=== PATIENT | male | born 1985 | race Caucasian/White ===

== ENCOUNTER 2016-09-28 10:57 | Inpatient (IN) | payer OTHER ==
[2016-09-28 11:40] VITALS: BMI 20.7
--- NOTE | 2016-09-28 12:46 | HP ---
CIWA Score - CIWA Score Nausea/Vomitin (NAUSEA/DIARRHEA) Muscle Tremors: 5 Anxiety: 5 Agitation: 3 Paroxysmal Sweats: 1-Minimal Palms Moist Orientation: 0-Oriented Tacttile Disturbances: 0-None Auditory Disturbances: 0-None Visual Disturbances: 0-None Headache: 1-Very Mild CIWA-Ar Total Score: 20 Admission ROS S - HPI Chief Complaint: DETOX TX FOR ALCOHOL DEPENDENCE Allergies/Adverse Reactions: Allergies Allergy/AdvReac Type Severity Reaction Status Date / Time No Known Allergies Allergy Verified 09/28/16 12:33 History of Present Illness: 31 Y/O H/MALE WITH A HX OF ALCOHOL DEPENDENCE SEEKING DETOX TX. PT WAS AT [facility] TWO DAYS AGO FOR TACHYCARDIA DUE TO WITHDRAWAL SX. Exam Limitations: No Limitations - Ebola screening Have you traveled outside of the country in the last 21 days: No Have you had contact with anyone from an Ebola affected area: No Have you been sick,other than usual withdrawal symptoms: No Do you have a fever: No - Review of Systems Constitutional: Chills, Loss of Appetite, Night Sweats, Changes in sleep EENT: reports: Blurred Vision (WEARS CONTACTS.), Nose Congestion Respiratory: reports: Cough, Shortness of Breath Cardiac: reports: Other (TACHYCARDIA DUE TO WITHDRAWAL SX) GI: reports: Diarrhea, Nausea, Poor Appetite, Abdominal cramping : reports: No Symptoms Reported Musculoskeletal: reports: Muscle Pain (/CRAMPS) Integumentary: reports: Bruising (ON RIGHT KNEE/BUMP ON RIGHT EYEBOW DUE TO FALL 3 WEEKS AGO. WENT TO [facility] FOR CARE...CATSCAN NEGATIVE PER PATIENT.) Neuro: reports: Headache ("VERY RARELY".), Tremors, Unsteady Gait (HX FALLS .), Dizziness Endocrine: reports: No Symptoms Reported Hematology: reports: No Symptoms Reported Psychiatric: reports: Orientated x3, Anxious (DUE TO WITHDRAWAL SX) Other Systems: Reviewed and Negative Patient History - Patient Medical History Hx Anemia: No Hx Asthma: No Hx Chronic Obstructive Pulmonary Disease (COPD): No Hx Cancer: No Hx Cardiac Disorders: No Hx Congestive Heart Failure: No Hx Hypertension: No Hx Hypercholesterolemia: No Hx Pacemaker: No HX Cerebrovascular Accident: No Hx Seizures: No Hx Dementia: No Hx Diabetes: No Hx Gastrointestinal Disorders: No Hx Liver Disease: No Hx Genitourinary Disorders: No Hx Sexually Transmitted Disorders: No Hx Renal Disease (ESRD): No Hx Thyroid Disease: No Hx Human Immunodeficiency Virus (HIV): No (NEGATIVE HX) Hx Hepatitis C: No Hx Depression: Yes Hx Suicide Attempt: No (DENIES) Hx Bipolar Disorder: No Hx Schizophrenia: No - Patient Surgical History Past Surgical History: Yes Hx Neurologic Surgery: No Hx Cataract Extraction: No Hx Cardiac Surgery: No Hx Lung Surgery: No Hx Breast Surgery: No Hx Breast Biopsy: No Hx Abdominal Surgery: Yes (gastric bypass in 2011 TUMMY TUCK IN 2012) Hx Appendectomy: No Hx Cholecystectomy: No Hx Genitourinary Surgery: No Hx Section: No Hx Orthopedic Surgery: No Anesthesia Reaction: No - PPD History Previous Implant?: Yes Documented Results: Negative w/o proof Implanted On Prior [facility] Admission?: No Date: 02/09/15 PPD to be Administered?: Yes - Reproductive History Patient is a Female of Child Bearing Age (11 -55 yrs old): No (MALE) - Smoking Cessation Smoking history: Current every day smoker Have you smoked in the past 12 months: Yes Aproximately how many cigarettes per day: 6 Hx Chewing Tobacco Use: No Initiated information on smoking cessation: Yes 'Breaking Loose' booklet given: 09/21/16 - Substance & Tx. History Hx Alcohol Use: Yes (VODKA) Hx Substance Use: No (DENIES) Substance Use Type: Alcohol Hx Substance Use Treatment: Yes ([facility] DETOX) - Substances Abused Alcohol Route: Oral Frequency: Daily Amount used: 2 PINTS VODKA Age of first use: 29 Date of Last Use: 09/26/16 Family Disease History - Family Disease History Family History: Denies Admission Physical Exam S - Vital Signs Vital Signs: Vital Signs - 24 hr 09/28/16 11:37 Temperature 98.4 F Pulse Rate 90 Respiratory 20 Rate Blood Pressure 134/96 - Physical General Appearance: Yes: Moderate Distress, Thin, Tremorous, Anxious HEENTM: Yes: EOMI, Normocephalic, TONY, Pharynx Normal Respiratory: Yes: Chest Non-Tender, Lungs Clear, Normal Breath Sounds, No Respiratory Distress Breast: Yes: Breast Exam Deferred Cardiology: Yes: Regular Rhythm, Regular Rate, S1, S2 Abdominal: Yes: Normal Bowel Sounds, Non Tender, Flat, Soft Genitourinary: Yes: Other (N/C) Back: Yes: Within Normal Limits Musculoskeletal: Yes: full range of Motion, Gait Steady Extremities: Yes: Normal Range of Motion, Non-Tender, Tremors Neurological: Yes: commuter train operator II-XII NML intact, Fully Oriented, Alert, Motor Strength 5/5 Integumentary: Yes: Normal Color, Dry, Warm Lymphatic: Yes: Within Normal Limits - Diagnostic (1) H/O gastric bypass Current Visit: Yes Status: Chronic (2) Nicotine dependence Current Visit: Yes Status: Chronic Qualifiers: Nicotine product type: cigarettes Substance use status: uncomplicated Qualified Code(s): F17.210 - Nicotine dependence, cigarettes, uncomplicated (3) Alcohol dependence with uncomplicated withdrawal Current Visit: Yes Status: Acute Cleared for Admission [facility] - Detox or Rehab [facility] Level of Care: Medically Managed Detox Regimen/Protocol: Librium [facility] Breath Alcohol Content Breath Alcohol Content: 0 Urine Drug Screen - Results Drug Screen Negative: No Urine Drug Screen Results: BZO-Benzodiazepines
[2016-09-28] MEDS ORDERED: MAG HYDROX/AL HYDROX/SIMETH 30 ML UNIT-DOSE CUP PO PRN (13:01)
[2016-09-28] MEDS ORDERED: MAGNESIUM HYDROX 2400MG/30ML ORAL SUSPENSION 30 ML CUP PO PRN (13:01)
[2016-09-28] MEDS ORDERED: MENTHOL/PHENOL 1 EACH UD MM PRN (13:01)
[2016-09-28] MEDS ORDERED: P-EPHED 60MG/TRIPROLIDI 2.5MG TABLET PO PRN (13:01)
[2016-09-28] MEDS ORDERED: guaiFENesin/D-METHORPHAN HB 10 ML UNIT-DOSE CUPS PO PRN (13:01)
[2016-09-28] MEDS ORDERED: LOPERAMIDE HCL 2 MG CAPSULE PO PRN (13:01)
[2016-09-28] MEDS ORDERED: IBUPROFEN 400 MG TABLET (FP) PO PRN (13:01)
[2016-09-28] MEDS ORDERED: MAGNESIUM CITRATE 300 ML BOTTLE PO PRN (13:01)
[2016-09-28] MEDS ORDERED: NICOTINE POLACRILEX 2 MG GUM BUC PRN (13:01)
[2016-09-28] MEDS ORDERED: ACETAMINOPHEN 325 MG TABLET (FP) PO PRN (13:01)
[2016-09-28] MEDS ORDERED: chlordiazePOXIDE HCL 25 MG CAPSULE PO ONE (14:15)
[2016-09-28] MEDS: NICOTINE 14 MG/24 HOURS TOPICAL PATCH TD SCH (14:43)
--- NOTE | 2016-09-28 16:14 | CONSULT ---
[facility] Psychiatric Consult - Data Date of interview: 09/28/16 Admission source: [facility] Identifying data: Readmission to [facility] for this 31 y/o male seeking detox treatment on for alcohol dependence.Patient is single without children,domiciled,currently unemployed and supported on food stamps. Substance Abuse History: - Smoking Cessation. Smoking history: Current every day smoker. Have you smoked in the past 12 months: Yes. Aproximately how many cigarettes per day: 6. Hx Chewing Tobacco Use: No. Initiated information on smoking cessation: Yes. 'Breaking Loose' booklet given: 09/21/16. - Substance & Tx. History. Hx Alcohol Use: Yes (VODKA). Hx Substance Use: No (DENIES). Substance Use Type: Alcohol. Hx Substance Use Treatment: Yes ([facility] DETOX). - Substances Abused. Alcohol. Route: Oral. Frequency: Daily. Amount used: 2 PINTS VODKA. Age of first use: 29. Date of Last Use: 09/26/16. Confirmed by patient. Medical History: Remarkable for a history of tummy tuck (2012),gastric bypass ( 2011). Psychiatric History: No reported history of psychiatric hospitalizations.No affiliation with OPD care providers.Mr López indicates that he takes trazodone 150 mg at bedtime (script from a psychiatrist during his most recent admission to a Rehabilitation inpatient unit).He denies history of suicide attempt.Last took this dose of trazodone on 09/27/16 as per self-report.No reported history of suicide attempts. Physical/Sexual Abuse/Trauma History: Patient denies. Additional Comment: Urine Drug Screen Results: BZO-Benzodiazepines.Noted. Mental Status Exam - Mental Status Exam Alert and Oriented to: Time, Place, Person Cognitive Function: Good Patient Appearance: Well Groomed (tattoos on both forearms) Mood: Nervous, Anxious, Hopeful Affect: Mood Congruent Patient Behavior: Fatigued, Talkative, Appropriate, Cooperative Speech Pattern: Clear, Appropriate Voice Loudness: Normal Thought Process: Goal Oriented Thought Disorder: Not Present Hallucinations: Denies Suicidal Ideation: Denies Homicidal Ideation: Denies Insight/Judgement: Poor Sleep: Poorly, Difficulty falling asleep Appetite: Good Muscle strength/Tone: Normal Gait/Station: Normal Psychiatric Findings - Problem List ([place] 1, 2,3) (1) Alcohol dependence with uncomplicated withdrawal Status: Acute (2) H/O gastric bypass Status: Acute (3) Nicotine dependence Status: Acute Qualifiers: Nicotine product type: cigarettes Substance use status: uncomplicated Qualified Code(s): F17.210 - Nicotine dependence, cigarettes, uncomplicated (4) Substance-induced sleep disorder Status: Acute - Initial Treatment Plan Initial Treatment Plan: Psychoeducation.Detoxification.Trazodone 100 mg po hs.Patient made aware of the risk of priapism (painful/prolonged erection) .Information reportedly aknowledged by patient.He agrees to follow this careplan.Observation.
[2016-09-28 16:35] LABS: URINE APPEARANCE CLEAR; URINE BLOOD NEGATIVE (NEGATIVE); URINE COLOR AMBER; URINE GLUCOSE (UA) NEGATIVE (NEGATIVE); URINE KETONE 1+ (NEGATIVE); URINE NITRITE NEGATIVE (NEGATIVE); URINE UROBILINOGEN 4.0 E.U/dl E.U./dl (0.2-1.0)
[2016-09-28 16:37] LABS: URINE LEUK ESTERASE TRACE (NEGATIVE); URINE PROTEIN 2+ (NEGATIVE)
[2016-09-28 16:46] LABS: URINE MUCUS RARE; URINE RBC 1 /hpf (0-3); URINE WBC <1 /hpf (3-5)
[2016-09-28] MEDS: chlordiazePOXIDE HCL 25 MG CAPSULE PO SCH ×2 (17:16→22:11)
[2016-09-28] MEDS: chlordiazePOXIDE HCL 25 MG CAPSULE PO PRN (20:05)
[2016-09-28] MEDS: traZODone HCL 100 MG TABLET (FP) PO SCH (22:11)
[2016-09-28] MEDS: THIAMINE HCL 100 MG TABLET (FP) PO SCH (22:11)
[2016-09-28] MEDS: hydrOXYzine PAMOATE 25 MG CAPSULE (FP) PO PRN (22:13)
[2016-09-29] MEDS: chlordiazePOXIDE HCL 25 MG CAPSULE PO SCH ×4 (06:21→22:23)
[2016-09-29 10:11] LABS: MCH 32.5 pg (25.7-33.7); MCHC 33.9 g/dl (32.0-35.9); MEAN PLT VOLUME 8.2 fl (7.5-11.1); PLATELET COUNT 63 K/MM3 (134-434); RDW 15.9 % (11.9-15.9); WHITE BLOOD COUNT 6.2 K/mm3 (4.0-10.0)
--- NOTE | 2016-09-29 10:23 | PN ---
S CIWA - CIWA Score Nausea/Vomitin Muscle Tremors: 3 Anxiety: 3 Agitation: 2 Paroxysmal Sweats: 1-Minimal Palms Moist Orientation: 0-Oriented Tacttile Disturbances: 1-Very Mild Itch/Numbness Auditory Disturbances: 1-Very Mild Visual Disturbances: 1-Very Mild Sensitivity Headache: 2-Mild CIWA-Ar Total Score: 17 [facility] Progress Note (SOAP) Subjective: ALERT,IRRITABLE ANXIOUS,INTERRUPTED SLEEP,TREMOR Objective: 09/29/16 10:20 Vital Signs Temperature 96.4 F L 09/29/16 09:38 Pulse Rate 91 H 09/29/16 09:38 Respiratory Rate 20 09/29/16 09:38 Blood Pressure 120/83 09/29/16 09:38 O2 Sat by Pulse Oximetry (%) EKG NSR Laboratory Last Values Sodium 139 mmol/L (136-145) 09/29/16 06:00 Potassium 3.4 mmol/L (3.5-5.1) L 09/29/16 06:00 Chloride 100 mmol/L (98-107) 09/29/16 06:00 Urine Color [place] 09/28/16 15:00 Urine Appearance Clear 09/28/16 15:00 Urine pH 8.0 (5.0-8.0) D 09/28/16 15:00 Ur Specific [place] 1.026 (1.001-1.035) 09/28/16 15:00 Urine Protein 2+ (NEGATIVE) H 09/28/16 15:00 Urine Glucose (UA) Negative (NEGATIVE) 09/28/16 15:00 Urine Ketones 1+ (NEGATIVE) H 09/28/16 15:00 Urine Blood Negative (NEGATIVE) 09/28/16 15:00 Urine Nitrite Negative (NEGATIVE) 09/28/16 15:00 Urine Bilirubin 2.0 (NEGATIVE) 09/28/16 15:00 Urine Urobilinogen 4.0 e.u/dl E.U./dl (0.2-1.0) 09/28/16 15:00 Ur Leukocyte Esterase Trace (NEGATIVE) H 09/28/16 15:00 Urine RBC 1 /hpf (0-3) 09/28/16 15:00 Urine WBC <1 /hpf (3-5) 09/28/16 15:00 Urine Mucus Rare 09/28/16 15:00 LABS PENDING Assessment: 09/29/16 10:22 WITHDRAWAL SYMPTOM Plan: CONTINUE DETOX
[2016-09-29] MEDS: NICOTINE 14 MG/24 HOURS TOPICAL PATCH TD SCH (10:24)
[2016-09-29] MEDS: PRENATAL VITAMINS W/ FOLIC ACID TABLET (FP) PO SCH (10:24)
[2016-09-29 10:41] LABS: ALBUMIN 4.3 g/dl (3.4-5.0); ALK PHOS 99 U/L (45-117); ANION GAP 11 (8-16); BILIRUBIN,TOTAL 1.3 mg/dL (0.2-1.0); CALCIUM 8.7 mg/dL (8.5-10.1); CO2 28 mmol/L (21-32); CREATININE 0.8 mg/dL (0.7-1.3); GLUCOSE,RANDOM 124 mg/dL (74-106); SGOT/AST 100 U/L (15-37); SGPT/ALT 51 U/L (12-78); TOT PROT 6.9 g/dl (6.4-8.2)
[2016-09-29 14:18] LABS: URINE APPEARANCE CLEAR; URINE BILIRUBIN 1+ (NEGATIVE); URINE BLOOD NEGATIVE (NEGATIVE); URINE COLOR YELLOW; URINE GLUCOSE (UA) NEGATIVE (NEGATIVE); URINE KETONE NEGATIVE (NEGATIVE); URINE NITRITE NEGATIVE (NEGATIVE); URINE PROTEIN NEGATIVE (NEGATIVE); URINE UROBILINOGEN >=8.0 E.U./dl E.U./dl (0.2-1.0)
[2016-09-29 14:25] LABS: URINE LEUK ESTERASE TRACE (NEGATIVE)
[2016-09-29 14:41] LABS: URINE MUCUS RARE; URINE RBC <1 /hpf (0-3); URINE WBC 2 /hpf (3-5)
--- NOTE | 2016-09-29 17:56 | PN ---
[facility] Progress Note Note: K+ 3.4 potassium supplement bid repeat lab 10/01/16
[2016-09-29] MEDS ORDERED: POTASSIUM CHLORIDE 40 MEQ/30 ML UNIT DOSE CUP PO SCH (22:00)
[2016-09-29] MEDS: THIAMINE HCL 100 MG TABLET (FP) PO SCH (22:23)
[2016-09-29] MEDS: traZODone HCL 100 MG TABLET (FP) PO SCH (22:23)
[2016-09-29] MEDS: POTASSIUM CHLORIDE TABS 20 MEQ TABLET.ER (FP) PO SCH (22:23)
[2016-09-29] MEDS: hydrOXYzine PAMOATE 25 MG CAPSULE (FP) PO PRN (22:26)
[2016-09-30] MEDS: chlordiazePOXIDE HCL 25 MG CAPSULE PO SCH ×2 (05:50→10:20)
--- NOTE | 2016-09-30 09:36 | PN ---
S CIWA - CIWA Score Nausea/Vomitin Muscle Tremors: 3 Anxiety: 3 Agitation: 2 Paroxysmal Sweats: 1-Minimal Palms Moist Orientation: 0-Oriented Tacttile Disturbances: 1-Very Mild Itch/Numbness Auditory Disturbances: 1-Very Mild Visual Disturbances: 1-Very Mild Sensitivity Headache: 2-Mild CIWA-Ar Total Score: 17 BHS Progress Note (SOAP) Subjective: ALERT,IRRITABLE,ANXIOUS,INTERRUPTED SLEEP,TREMOR Objective: 09/30/16 09:33 Vital Signs Temperature 98.2 F 09/30/16 06:30 Pulse Rate 90 09/30/16 06:30 Respiratory Rate 16 09/30/16 06:30 Blood Pressure 96/59 09/30/16 06:30 O2 Sat by Pulse Oximetry (%) Laboratory Last Values WBC 6.2 K/mm3 (4.0-10.0) 09/29/16 06:00 RBC 4.47 M/mm3 (4.00-5.60) 09/29/16 06:00 Hgb 14.6 GM/dL (11.7-16.9) D 09/29/16 06:00 Hct 43.0 % (35.4-49) 09/29/16 06:00 MCV 96.0 fl (80-96) 09/29/16 06:00 MCHC 33.9 g/dl (32.0-35.9) 09/29/16 06:00 RDW 15.9 % (11.9-15.9) D 09/29/16 06:00 Plt Count 63 K/MM3 (134-434) L D 09/29/16 06:00 MPV 8.2 fl (7.5-11.1) 09/29/16 06:00 Sodium 139 mmol/L (136-145) 09/29/16 06:00 Potassium 3.4 mmol/L (3.5-5.1) L 09/29/16 06:00 Chloride 100 mmol/L (98-107) 09/29/16 06:00 Carbon Dioxide 28 mmol/L (21-32) 09/29/16 06:00 Anion Gap 11 (8-16) 09/29/16 06:00 BUN 6 mg/dL (7-18) L 09/29/16 06:00 Creatinine 0.8 mg/dL (0.7-1.3) 09/29/16 06:00 Creat Clearance w eGFR > 60 (>60) 09/29/16 06:00 Random Glucose 124 mg/dL (74-106) H D 09/29/16 06:00 Calcium 8.7 mg/dL (8.5-10.1) 09/29/16 06:00 Total Bilirubin 1.3 mg/dL (0.2-1.0) H D 09/29/16 06:00 AST 100 U/L (15-37) H D 09/29/16 06:00 ALT 51 U/L (12-78) 09/29/16 06:00 Alkaline Phosphatase 99 U/L (45-117) D 09/29/16 06:00 Total Protein 6.9 g/dl (6.4-8.2) 09/29/16 06:00 Albumin 4.3 g/dl (3.4-5.0) D 09/29/16 06:00 Urine Color Yellow 09/29/16 11:00 Urine Appearance Clear 09/29/16 11:00 Urine pH 7.0 (5.0-8.0) 09/29/16 11:00 Ur Specific [place] 1.010 (1.001-1.035) 09/29/16 11:00 Urine Protein Negative (NEGATIVE) 09/29/16 11:00 Urine Glucose (UA) Negative (NEGATIVE) 09/29/16 11:00 Urine Ketones Negative (NEGATIVE) 09/29/16 11:00 Urine Blood Negative (NEGATIVE) 09/29/16 11:00 Urine Nitrite Negative (NEGATIVE) 09/29/16 11:00 Urine Bilirubin 1+ (NEGATIVE) H 09/29/16 11:00 Urine Urobilinogen >=8.0 e.u./dl E.U./dl (0.2-1.0) 09/29/16 11:00 Ur Leukocyte Esterase Trace (NEGATIVE) H 09/29/16 11:00 Urine RBC <1 /hpf (0-3) 09/29/16 11:00 Urine WBC 2 /hpf (3-5) 09/29/16 11:00 Urine Mucus Rare 09/29/16 11:00 RPR Titer Nonreactive (NONREACTIVE) 09/29/16 06:00 Assessment: 09/30/16 09:36 WITHDRAWAL SYMPTOM Plan: CONTINUE DETOX,K REPLACEMENT,K IS 3.4,REPEAT CMP IN AM,BGM DAILY INITIAL GLUCOSE IS 121
--- NOTE | 2016-09-30 09:48 | EKG ---
Test Reason : Blood Pressure : / mmHG Vent. Rate : 076 BPM Atrial Rate : 076 BPM P-R Int : 120 ms QRS Dur : 104 ms QT Int : 374 ms P-R-T Axes : 051 056 060 degrees QTc Int : 420 ms NORMAL SINUS RHYTHM MINIMAL VOLTAGE CRITERIA FOR LVH, MAY BE NORMAL VARIANT BORDERLINE ECG NO PREVIOUS ECGS AVAILABLE Confirmed by FRANCIS MAHARAJ MD ([id number]) on 09/30/2016 9:47:39 AM Referred By: Alfred López Confirmed By:FRANCIS MAHARAJ MD
[2016-09-30] MEDS: NICOTINE 14 MG/24 HOURS TOPICAL PATCH TD SCH (10:20)
[2016-09-30] MEDS: POTASSIUM CHLORIDE TABS 20 MEQ TABLET.ER (FP) PO SCH ×2 (10:20→22:45)
[2016-09-30] MEDS: PRENATAL VITAMINS W/ FOLIC ACID TABLET (FP) PO SCH (10:20)
[2016-09-30] MEDS: chlordiazePOXIDE HCL 25 MG CAPSULE PO PRN (15:40)
[2016-09-30] MEDS: chlordiazePOXIDE 5 MG CAPSULE PO SCH ×2 (17:47→22:44)
[2016-09-30] MEDS: THIAMINE HCL 100 MG TABLET (FP) PO SCH (22:45)
[2016-09-30] MEDS: traZODone HCL 100 MG TABLET (FP) PO SCH (22:45)
[2016-09-30] MEDS: diphenhydrAMINE HCL 50 MG CAPSULE PO PRN (22:46)
[2016-10-01] MEDS: chlordiazePOXIDE 5 MG CAPSULE PO SCH ×2 (06:03→10:40)
--- NOTE | 2016-10-01 10:08 | PN ---
S Progress Note (SOAP) Subjective: ALERT,INTERRUPTED SLEEP,ANXIOUS Objective: 10/01/16 10:07 Vital Signs Temperature 98.6 F 10/01/16 06:41 Pulse Rate 85 10/01/16 06:41 Respiratory Rate 16 10/01/16 06:41 Blood Pressure 101/67 10/01/16 06:41 O2 Sat by Pulse Oximetry (%) Assessment: 10/01/16 10:07 WITHDRAWAL SYMPTOM Plan: CONTINUE DETOX,REPEAT CMP,INR PENDING,DISCHARGE IN AM
[2016-10-01 10:22] LABS: INR 1.03 (0.82-1.09); PROTHROMBIN TIME (PATIENT) 11.3 SEC (9.98-11.88)
[2016-10-01] MEDS: PRENATAL VITAMINS W/ FOLIC ACID TABLET (FP) PO SCH (10:40)
[2016-10-01] MEDS: POTASSIUM CHLORIDE TABS 20 MEQ TABLET.ER (FP) PO SCH ×2 (10:40→22:35)
[2016-10-01] MEDS: NICOTINE 14 MG/24 HOURS TOPICAL PATCH TD SCH (10:40)
[2016-10-01 10:41] LABS: ALBUMIN 3.1 g/dl (3.4-5.0); ALK PHOS 62 U/L (45-117); ANION GAP 6 (8-16); BILIRUBIN,TOTAL 0.4 mg/dL (0.2-1.0); CO2 29 mmol/L (21-32); CREATININE 0.7 mg/dL (0.7-1.3); GLUCOSE,RANDOM 96 mg/dL (74-106); SGOT/AST 93 U/L (15-37); SGPT/ALT 71 U/L (12-78); TOT PROT 5.3 g/dl (6.4-8.2)
[2016-10-01] MEDS: chlordiazePOXIDE HCL 10 MG CAPSULE PO SCH ×2 (17:50→22:35)
[2016-10-01] MEDS: THIAMINE HCL 100 MG TABLET (FP) PO SCH (22:35)
[2016-10-01] MEDS: diphenhydrAMINE HCL 50 MG CAPSULE PO PRN (22:35)
[2016-10-01] MEDS: traZODone HCL 100 MG TABLET (FP) PO SCH (22:35)
[2016-10-02] MEDS: chlordiazePOXIDE HCL 10 MG CAPSULE PO SCH (05:15)
[2016-10-02 09:37] VITALS: BP 113/76; PULSE 77; TEMP 97
--- NOTE | 2016-10-02 11:00 | DS ---
[facility] Detox Discharge Summary Admission Date: 09/28/16 Discharge Date: 10/02/16 - History Present History: Alcohol Dependence Pertinent Past History: GASTRIC BY-PASS - Physical Exam Results Vital Signs: Vital Signs Temperature 97.0 F L 10/02/16 09:36 Pulse Rate 77 10/02/16 09:36 Respiratory Rate 18 10/02/16 09:36 Blood Pressure 113/76 10/02/16 09:36 O2 Sat by Pulse Oximetry (%) Pertinent Admission Physical Exam Findings: WITHDRAWAL SX. Laboratory Last Values WBC 6.2 K/mm3 (4.0-10.0) 09/29/16 06:00 RBC 4.47 M/mm3 (4.00-5.60) 09/29/16 06:00 Hgb 14.6 GM/dL (11.7-16.9) D 09/29/16 06:00 Hct 43.0 % (35.4-49) 09/29/16 06:00 MCV 96.0 fl (80-96) 09/29/16 06:00 MCHC 33.9 g/dl (32.0-35.9) 09/29/16 06:00 RDW 15.9 % (11.9-15.9) D 09/29/16 06:00 Plt Count 63 K/MM3 (134-434) L D 09/29/16 06:00 MPV 8.2 fl (7.5-11.1) 09/29/16 06:00 INR 1.03 (0.82-1.09) 10/01/16 07:00 Sodium 143 mmol/L (136-145) 10/01/16 06:30 Potassium 3.5 mmol/L (3.5-5.1) 10/01/16 06:30 Chloride 108 mmol/L (98-107) H 10/01/16 06:30 Carbon Dioxide 29 mmol/L (21-32) 10/01/16 06:30 Anion Gap 6 (8-16) L 10/01/16 06:30 BUN 9 mg/dL (7-18) D 10/01/16 06:30 Creatinine 0.7 mg/dL (0.7-1.3) 10/01/16 06:30 Creat Clearance w eGFR > 60 (>60) 10/01/16 06:30 POC Glucometer 93 UNITS (()) 10/02/16 05:15 Random Glucose 96 mg/dL (74-106) D 10/01/16 06:30 Calcium 8.0 mg/dL (8.5-10.1) L 10/01/16 06:30 Total Bilirubin 0.4 mg/dL (0.2-1.0) D 10/01/16 06:30 AST 93 U/L (15-37) H 10/01/16 06:30 ALT 71 U/L (12-78) D 10/01/16 06:30 Alkaline Phosphatase 62 U/L (45-117) D 10/01/16 06:30 Total Protein 5.3 g/dl (6.4-8.2) L D 10/01/16 06:30 Albumin 3.1 g/dl (3.4-5.0) L D 10/01/16 06:30 Urine Color Yellow 09/29/16 11:00 Urine Appearance Clear 09/29/16 11:00 Urine pH 7.0 (5.0-8.0) 09/29/16 11:00 Ur Specific [place] 1.010 (1.001-1.035) 09/29/16 11:00 Urine Protein Negative (NEGATIVE) 09/29/16 11:00 Urine Glucose (UA) Negative (NEGATIVE) 09/29/16 11:00 Urine Ketones Negative (NEGATIVE) 09/29/16 11:00 Urine Blood Negative (NEGATIVE) 09/29/16 11:00 Urine Nitrite Negative (NEGATIVE) 09/29/16 11:00 Urine Bilirubin 1+ (NEGATIVE) H 09/29/16 11:00 Urine Urobilinogen >=8.0 e.u./dl E.U./dl (0.2-1.0) 09/29/16 11:00 Ur Leukocyte Esterase Trace (NEGATIVE) H 09/29/16 11:00 Urine RBC <1 /hpf (0-3) 09/29/16 11:00 Urine WBC 2 /hpf (3-5) 09/29/16 11:00 Urine Mucus Rare 09/29/16 11:00 RPR Titer Nonreactive (NONREACTIVE) 09/29/16 06:00 LABS NOTED - Treatment Hospital Course: Detox Protocol Followed, Detoxed Safely, Responded well, Discharged Condition Good, Rehab Referral Accepted - Medication Discharge Medications: Ambulatory Orders Hydroxyzine Pamoate [Vistaril -] 50 mg PO HS 09/28/16 Trazodone HCl [Desyrel -] 150 mg PO HS 09/28/16 Trazodone HCl [Desyrel -] 150 mg PO HS #30 tablet 09/28/16 - Diagnosis (1) Alcohol dependence with uncomplicated withdrawal Status: Acute (2) H/O gastric bypass Status: Acute (3) Hypokalemia Status: Acute (4) Nicotine dependence Status: Acute Qualifiers: Nicotine product type: cigarettes Substance use status: uncomplicated Qualified Code(s): F17.210 - Nicotine dependence, cigarettes, uncomplicated (5) Substance-induced sleep disorder Status: Acute - AMA Did Patient Leave Against Medical Advice: No
== END 2016-10-02 09:51 | disposition home or self-care (01) | DRG 775 ==
LOC: YASAS 10:57 → Y3N 13:15
PROVIDERS: ADMIT Internal Medicine; ATTEND Internal Medicine
PROC: HZ2ZZZZ Detoxification Services for Substance Abuse Treatment (ICD-10-PCS; principal; 2016-09-28)
DX: F10.230 Alcohol dependence with withdrawal, uncomplicated (principal); F17.210 Nicotine dependence, cigarettes, uncomplicated; F19.282 Other psychoactive substance dependence with psychoactive substance-induced sleep disorder; E87.6 Hypokalemia; Z98.84 Bariatric surgery status
CPT/HCPCS: 36415; 80053; 81003; 81015; 85027; 85610; 86593; 93005; 93010

== ENCOUNTER 2016-12-31 08:19 | Inpatient (IN) | payer OTHER ==
[2016-12-31 10:14] VITALS: BMI 22.3
--- NOTE | 2016-12-31 10:50 | HP ---
CIWA Score - CIWA Score Nausea/Vomitin Muscle Tremors: 3 Anxiety: 3 Agitation: 3 Paroxysmal Sweats: 2 Orientation: 0-Oriented Tacttile Disturbances: 2-Mild Itch/Numbness/Burn Auditory Disturbances: 2-Mild Harshness/Frighten Visual Disturbances: 2-Mild Sensitivity Headache: 2-Mild CIWA-Ar Total Score: 22 Admission ROS [facility] - HPI Chief Complaint: i need help to stop drinking alcohol Allergies/Adverse Reactions: Allergies Allergy/AdvReac Type Severity Reaction Status Date / Time No Known Allergies Allergy Verified 12/31/16 10:04 History of Present Illness: this 31 years old male with alcohol dependence ,withdrawal symptom,last detox [facility] 09/28/16 to 10/02/16 syncope insomnia longest period of sobriety 90 days several admissions in detox and rehab - Ebola screening Have you traveled outside of the country in the last 21 days: No Have you had contact with anyone from an Ebola affected area: No Have you been sick,other than usual withdrawal symptoms: No - Review of Systems Constitutional: Loss of Appetite, Malaise, Night Sweats, Changes in sleep, Weakness EENT: reports: Nose Congestion Respiratory: reports: No Symptoms reported Cardiac: reports: No Symptoms Reported GI: reports: Diarrhea, Nausea, Vomiting, Abdominal cramping : reports: No Symptoms Reported Musculoskeletal: reports: Back Pain, Muscle Pain Integumentary: reports: Dryness Neuro: reports: Headache, Tremors Endocrine: reports: No Symptoms Reported Hematology: reports: No Symptoms Reported Psychiatric: reports: Judgement Intact, Mood/Affect Appropiate, Orientated x3 ( insomnia) Patient History - Patient Medical History Hx Anemia: No Hx Asthma: No Hx Chronic Obstructive Pulmonary Disease (COPD): No Hx Cancer: No Hx Cardiac Disorders: No Hx Congestive Heart Failure: No Hx Hypertension: No Hx Hypercholesterolemia: No Hx Pacemaker: No HX Cerebrovascular Accident: No Hx Seizures: No Hx Dementia: No Hx Diabetes: No Hx Gastrointestinal Disorders: No Hx Liver Disease: No Hx Genitourinary Disorders: No Hx Sexually Transmitted Disorders: No Hx Renal Disease (ESRD): No Hx Thyroid Disease: No Hx Human Immunodeficiency Virus (HIV): No (NEGATIVE HX last 12/04) Hx Hepatitis C: No Hx Depression: No Hx Suicide Attempt: No Hx Bipolar Disorder: No Hx Schizophrenia: No Other Medical History: insomnia,no suicidal,no homicidal - Patient Surgical History Past Surgical History: Yes Hx Neurologic Surgery: No Hx Cataract Extraction: No Hx Cardiac Surgery: No Hx Lung Surgery: No Hx Breast Surgery: No Hx Breast Biopsy: No Hx Abdominal Surgery: Yes (gastric bypass in 2011 TUMMY TUCK IN 2012) Hx Appendectomy: No Hx Cholecystectomy: No Hx Genitourinary Surgery: No Hx Section: No Hx Orthopedic Surgery: No Anesthesia Reaction: No - PPD History Previous Implant?: Yes Documented Results: Negative w/proof Implanted On Prior [facility] Admission?: Yes Date: 09/30/16 Results: 0 mm PPD to be Administered?: No - Smoking Cessation Smoking history: Current every day smoker Have you smoked in the past 12 months: Yes Aproximately how many cigarettes per day: 10 Hx Chewing Tobacco Use: No Initiated information on smoking cessation: Yes 'Breaking Loose' booklet given: 12/31/16 - Substance & Tx. History Hx Alcohol Use: Yes Hx Substance Use: No Substance Use Type: Alcohol Hx Substance Use Treatment: Yes ([facility] 09/28/16 to 10/02/16) - Substances Abused Alcohol-vodka/four sandy Route: Oral Frequency: Daily Amount used: 4 pts./1-6 pk. Age of first use: 29 Date of Last Use: 12/31/16 Family Disease History - Family Disease History Family History: Denies Admission Physical Exam S - Vital Signs Vital Signs: Vital Signs - 24 hr 12/31/16 10:11 Temperature 97 F L Pulse Rate 111 H Respiratory 20 Rate Blood Pressure 132/76 - Physical General Appearance: Yes: Moderate Distress, Tremorous, Irritable, Sweating, Anxious HEENTM: Yes: Normal ENT Inspection, TONY, Pharynx Normal Respiratory: Yes: Within Normal Limits, Lungs Clear, Normal Breath Sounds Neck: Yes: Within Normal Limits, Supple, Trachea in good position Breast: Yes: Within Normal Limits Cardiology: Yes: Within Normal Limits, Regular Rhythm, Regular Rate, S1, S2 Abdominal: Yes: Normal Bowel Sounds, Non Tender, Flat, Soft Genitourinary: Yes: Within Normal Limits Back: Yes: Muscle Spasm Musculoskeletal: Yes: Back pain, Muscle Pain Extremities: Yes: Within Normal Limits, Normal Range of Motion, Tremors Neurological: Yes: ethologist II-XII NML intact, Fully Oriented, Alert, Motor Strength 5/5 Integumentary: Yes: Dry, Other Lymphatic: Yes: Within Normal Limits - Addiitonal Findings: tattooes - Diagnostic (1) Alcohol dependence with uncomplicated withdrawal Current Visit: No Status: Acute (2) H/O gastric bypass Current Visit: No Status: Acute (3) Nicotine dependence Current Visit: No Status: Acute Qualifiers: Nicotine product type: cigarettes Substance use status: uncomplicated Qualified Code(s): F17.210 - Nicotine dependence, cigarettes, uncomplicated (4) Insomnia Current Visit: Yes Status: Acute (5) Syncope Current Visit: Yes Status: Acute (6) Sleep apnea Current Visit: Yes Status: Acute Cleared for Admission [facility] - Detox or Rehab [facility] Level of Care: Medically Managed Detox Regimen/Protocol: Librium S Breath Alcohol Content Breath Alcohol Content: 0.151 Urine Drug Screen - Results Drug Screen Negative: Yes
[2016-12-31] MEDS ORDERED: LOPERAMIDE HCL 2 MG CAPSULE PO PRN (10:57)
[2016-12-31] MEDS ORDERED: ACETAMINOPHEN 325 MG TABLET (FP) PO PRN (10:57)
[2016-12-31] MEDS ORDERED: IBUPROFEN 400 MG TABLET (FP) PO PRN (10:57)
[2016-12-31] MEDS ORDERED: MAGNESIUM CITRATE 300 ML BOTTLE PO PRN (10:57)
[2016-12-31] MEDS ORDERED: chlordiazePOXIDE HCL 25 MG CAPSULE PO PRN (10:57)
[2016-12-31] MEDS ORDERED: MAG HYDROX/AL HYDROX/SIMETH 30 ML UNIT-DOSE CUP PO PRN (10:57)
[2016-12-31] MEDS ORDERED: MAGNESIUM HYDROX 2400MG/30ML ORAL SUSPENSION 30 ML CUP PO PRN (10:57)
[2016-12-31] MEDS ORDERED: guaiFENesin/D-METHORPHAN HB 10 ML UNIT-DOSE CUPS PO PRN (10:57)
[2016-12-31] MEDS ORDERED: P-EPHED 60MG/TRIPROLIDI 2.5MG TABLET PO PRN (10:57)
[2016-12-31] MEDS ORDERED: MENTHOL/PHENOL 1 EACH UD MM PRN (10:57)
[2016-12-31] MEDS ORDERED: chlordiazePOXIDE HCL 25 MG CAPSULE PO ONE (11:30)
[2016-12-31 17:35] LABS: URINE APPEARANCE CLEAR; URINE BILIRUBIN NEGATIVE (NEGATIVE); URINE BLOOD NEGATIVE (NEGATIVE); URINE COLOR LTYELLOW; URINE GLUCOSE (UA) NEGATIVE (NEGATIVE); URINE KETONE NEGATIVE (NEGATIVE); URINE LEUK ESTERASE NEGATIVE (NEGATIVE); URINE NITRITE NEGATIVE (NEGATIVE); URINE PROTEIN NEGATIVE (NEGATIVE); URINE UROBILINOGEN NEGATIVE E.U./dl (0.2-1.0)
[2016-12-31] MEDS: diphenhydrAMINE HCL 50 MG CAPSULE PO PRN (22:27)
--- NOTE | 2017-01-01 10:11 | EKG ---
Test Reason : Blood Pressure : / mmHG Vent. Rate : 090 BPM Atrial Rate : 090 BPM P-R Int : 134 ms QRS Dur : 100 ms QT Int : 362 ms P-R-T Axes : 043 062 070 degrees QTc Int : 442 ms NORMAL SINUS RHYTHM NORMAL ECG WHEN COMPARED WITH ECG OF 28-SEP-2016 15:06, NO SIGNIFICANT CHANGE WAS FOUND Confirmed by DANIELA SEQUEIRA MD ([id number]) on 01/01/2017 10:10:42 AM Referred By: Alfred López Confirmed By:DANIELA SEQUEIRA MD
[2017-01-01 10:13] LABS: MCH 32.9 pg (25.7-33.7); MCHC 34.8 g/dl (32.0-35.9); MEAN CELL VOLUME 94.3 fl (80-96); MEAN PLT VOLUME 7.1 fl (7.5-11.1); PLATELET COUNT 103 K/MM3 (134-434); RDW 15.6 % (11.9-15.9); WHITE BLOOD COUNT 5.6 K/mm3 (4.0-10.0)
[2017-01-01] MEDS: PRENATAL VITAMINS W/ FOLIC ACID TABLET (FP) PO SCH (10:13)
[2017-01-01 10:30] LABS: ALBUMIN 4.1 g/dl (3.4-5.0); ANION GAP 9 (8-16); BILIRUBIN,TOTAL 0.4 mg/dL (0.2-1.0); CALCIUM 8.3 mg/dL (8.5-10.1); CO2 29 mmol/L (21-32); COCKROFT - GAULT 159.83; CREATININE 0.7 mg/dL (0.7-1.3); GLUCOSE,RANDOM 122 mg/dL (74-106); SGOT/AST 95 U/L (15-37); SGPT/ALT 62 U/L (12-78)
[2017-01-01 10:31] LABS: ALK PHOS 113 U/L (45-117); TOT PROT 7.2 g/dl (6.4-8.2)
--- NOTE | 2017-01-01 12:33 | CONSULT ---
[facility] Psychiatric Consult - Data Date of interview: 01/01/17 Admission source: [facility] Identifying data: Another admission to [facility] for this 31 y/o male seeking detox treatment on for alcohol dependence.Patient is single without children,domiciled,currently unemployed and supported on food stamps. Substance Abuse History: - Smoking Cessation. Smoking history: Current every day smoker. Have you smoked in the past 12 months: Yes. Aproximately how many cigarettes per day: 10. Hx Chewing Tobacco Use: No. Initiated information on smoking cessation: Yes. 'Breaking Loose' booklet given: 12/31/16. - Substance & Tx. History. Hx Alcohol Use: Yes. Hx Substance Use: No. Substance Use Type : Alcohol. Hx Substance Use Treatment: Yes ([facility] 09/28/16 to 10/02/16). - Substances Abused. Alcohol-vodka/four sandy. Route: Oral. Frequency: Daily. Amount used: 4 pts./1-6 pk. Age of first use: 29. Date of Last Use: . Confirmed by patient. Medical History: History of tummy tuck (2012),gastric bypass (2011). Psychiatric History: Patient denies history of psychiatric hospitalizations.No affiliation with [facility] care providers.Diagnosed with insomnia and mild anxiety.Prescribed trazodone 150 mg/hs + vistaril 50 mg/day by his primary care doctor.Mr López denies history of suicide attempts. Physical/Sexual Abuse/Trauma History: Patient denies. Additional Comment: Drug Screen Negative: Yes .Noted. Mental Status Exam - Mental Status Exam Alert and Oriented to: Time, Place, Person Cognitive Function: Good Patient Appearance: Unkempt, Disheveled (tattoos on forearms) Mood: Withdrawn, Anxious, Apprehensive Affect: Mood Congruent Patient Behavior: Sedated (light sedation), Fatigued Speech Pattern: Clear Voice Loudness: Normal Thought Process: Goal Oriented Thought Disorder: Not Present Hallucinations: Denies Suicidal Ideation: Denies Homicidal Ideation: Denies Insight/Judgement: Poor Sleep: Poorly, Difficulty falling asleep Appetite: Good Muscle strength/Tone: Normal Gait/Station: Normal Psychiatric Findings - Problem List ([place] 1, 2,3) (1) Alcohol dependence with uncomplicated withdrawal Current Visit: Yes Status: Acute (2) Nicotine dependence Current Visit: Yes Status: Acute Qualifiers: Nicotine product type: cigarettes Substance use status: uncomplicated Qualified Code(s): F17.210 - Nicotine dependence, cigarettes, uncomplicated (3) Sleep apnea Current Visit: Yes Status: Chronic (4) H/O gastric bypass Current Visit: Yes Status: Chronic (5) Insomnia Current Visit: Yes Status: Chronic - Initial Treatment Plan Initial Treatment Plan: Psychoeducation.Detoxification.Trazodone 100 mg po hs.Patient is made aware of the risk for priapism and he is instructed to stop trazodone/seek immediate medical attention if occurrence of painful/prolonged erection.He agrees with this careplan.Observation.
--- NOTE | 2017-01-01 12:44 | PN ---
[facility] CIWA - CIWA Score Nausea/Vomitin-Mild Nausea/No Vomiting Muscle Tremors: 4-Moderate,w/Arms Extend Anxiety: 4-Mod. Anxious/Guarded Agitation: 2 Paroxysmal Sweats: 3 Orientation: 0-Oriented Tacttile Disturbances: 3-Moderate Itch/Numb/Burn Auditory Disturbances: 0-None Visual Disturbances: 2-Mild Sensitivity Headache: 0-None Present CIWA-Ar Total Score: 19 BHS Progress Note (SOAP) Subjective: Interrupted Sleep, Skin Discomfort, Diarrhea, Sweating, Tremors. Objective: PT. A & O X 3, OBSERVED AMBULATING ON UNIT. 01/01/17 12:41 Vital Signs Temperature 98.1 F 01/01/17 11:16 Pulse Rate 120 H 01/01/17 11:16 Respiratory Rate 20 01/01/17 11:16 Blood Pressure 139/90 01/01/17 11:16 O2 Sat by Pulse Oximetry (%) Laboratory Last Values WBC 5.6 K/mm3 (4.0-10.0) 01/01/17 06:00 RBC 4.57 M/mm3 (4.00-5.60) 01/01/17 06:00 Hgb 15.0 GM/dL (11.7-16.9) 01/01/17 06:00 Hct 43.1 % (35.4-49) 01/01/17 06:00 MCV 94.3 fl (80-96) 01/01/17 06:00 MCHC 34.8 g/dl (32.0-35.9) 01/01/17 06:00 RDW 15.6 % (11.9-15.9) 01/01/17 06:00 Plt Count 103 K/MM3 (134-434) L D 01/01/17 06:00 MPV 7.1 fl (7.5-11.1) L D 01/01/17 06:00 Sodium 142 mmol/L (136-145) 01/01/17 06:00 Potassium 3.2 mmol/L (3.5-5.1) L 01/01/17 06:00 Chloride 104 mmol/L (98-107) 01/01/17 06:00 Carbon Dioxide 29 mmol/L (21-32) 01/01/17 06:00 Anion Gap 9 (8-16) 01/01/17 06:00 BUN 4 mg/dL (7-18) L D 01/01/17 06:00 Creatinine 0.7 mg/dL (0.7-1.3) 01/01/17 06:00 Creat Clearance w eGFR > 60 (>60) 01/01/17 06:00 Random Glucose 122 mg/dL (74-106) H D 01/01/17 06:00 Calcium 8.3 mg/dL (8.5-10.1) L 01/01/17 06:00 Total Bilirubin 0.4 mg/dL (0.2-1.0) 01/01/17 06:00 AST 95 U/L (15-37) H 01/01/17 06:00 ALT 62 U/L (12-78) 01/01/17 06:00 Alkaline Phosphatase 113 U/L (45-117) D 01/01/17 06:00 Total Protein 7.2 g/dl (6.4-8.2) D 01/01/17 06:00 Albumin 4.1 g/dl (3.4-5.0) D 01/01/17 06:00 Urine Color Ltyellow 12/31/16 15:00 Urine Appearance Clear 12/31/16 15:00 Urine pH 7.0 (5.0-8.0) 12/31/16 15:00 Ur Specific [place] 1.009 (1.001-1.035) 12/31/16 15:00 Urine Protein Negative (NEGATIVE) 12/31/16 15:00 Urine Glucose (UA) Negative (NEGATIVE) 12/31/16 15:00 Urine Ketones Negative (NEGATIVE) 12/31/16 15:00 Urine Blood Negative (NEGATIVE) 12/31/16 15:00 Urine Nitrite Negative (NEGATIVE) 12/31/16 15:00 Urine Bilirubin Negative (NEGATIVE) 12/31/16 15:00 Urine Urobilinogen Negative E.U./dl (0.2-1.0) 12/31/16 15:00 Ur Leukocyte Esterase Negative (NEGATIVE) 12/31/16 15:00 RPR Titer Nonreactive (NONREACTIVE) 01/01/17 06:00 LABS NOTED. Assessment: 01/01/17 12:42 WITHDRAWAL SYMPTOMS. Plan: CONTINUE DETOX. K, 20 MEQ X 1 NOW AND THEN 20 MEQ BID AFTER. PRN IMMODIUM FOR DIARRHEA. ADVISED PATIENT TO FOLLOW-UP WITH TIPPING MACHINE OPERATOR AUTOMATIC / REHAB MEDICAL PROVIDER AFTER DISCHARGE FROM DETOX FOR ABNORMAL ADMISSION LAB VALUES.
[2017-01-01] MEDS ORDERED: POTASSIUM CHLORIDE TABS 20 MEQ TABLET.ER (FP) PO ONE (13:54)
[2017-01-01] MEDS: chlordiazePOXIDE HCL 25 MG CAPSULE PO SCH ×2 (17:54→22:14)
[2017-01-01] MEDS: POTASSIUM CHLORIDE TABS 20 MEQ TABLET.ER (FP) PO SCH (22:14)
[2017-01-01] MEDS: traZODone HCL 100 MG TABLET (FP) PO SCH (22:14)
[2017-01-01] MEDS: diphenhydrAMINE HCL 50 MG CAPSULE PO PRN (22:15)
[2017-01-02] MEDS: chlordiazePOXIDE HCL 25 MG CAPSULE PO SCH ×2 (05:56→10:27)
[2017-01-02] MEDS: PRENATAL VITAMINS W/ FOLIC ACID TABLET (FP) PO SCH (10:26)
[2017-01-02] MEDS: POTASSIUM CHLORIDE TABS 20 MEQ TABLET.ER (FP) PO SCH ×2 (10:27→22:08)
--- NOTE | 2017-01-02 14:53 | PN ---
S CIWA - CIWA Score Nausea/Vomitin Muscle Tremors: 3 Anxiety: 3 Agitation: 3 Paroxysmal Sweats: 1-Minimal Palms Moist Orientation: 0-Oriented Tacttile Disturbances: 1-Very Mild Itch/Numbness Auditory Disturbances: 1-Very Mild Visual Disturbances: 1-Very Mild Sensitivity Headache: 2-Mild CIWA-Ar Total Score: 18 BHS Progress Note (SOAP) Subjective: ALERT,IRRITABLE,ANXIOUS,INTERRUPTED SLEEP,TREMOR Objective: 01/02/17 14:52 Vital Signs Temperature 97.5 F L 01/02/17 10:29 Pulse Rate 116 H 01/02/17 10:29 Respiratory Rate 18 01/02/17 10:29 Blood Pressure 124/78 01/02/17 10:29 O2 Sat by Pulse Oximetry (%) Laboratory Last Values WBC 5.6 K/mm3 (4.0-10.0) 01/01/17 06:00 RBC 4.57 M/mm3 (4.00-5.60) 01/01/17 06:00 Hgb 15.0 GM/dL (11.7-16.9) 01/01/17 06:00 Hct 43.1 % (35.4-49) 01/01/17 06:00 MCV 94.3 fl (80-96) 01/01/17 06:00 MCHC 34.8 g/dl (32.0-35.9) 01/01/17 06:00 RDW 15.6 % (11.9-15.9) 01/01/17 06:00 Plt Count 103 K/MM3 (134-434) L D 01/01/17 06:00 MPV 7.1 fl (7.5-11.1) L D 01/01/17 06:00 Sodium 142 mmol/L (136-145) 01/01/17 06:00 Potassium 3.2 mmol/L (3.5-5.1) L 01/01/17 06:00 Chloride 104 mmol/L (98-107) 01/01/17 06:00 Carbon Dioxide 29 mmol/L (21-32) 01/01/17 06:00 Anion Gap 9 (8-16) 01/01/17 06:00 BUN 4 mg/dL (7-18) L D 01/01/17 06:00 Creatinine 0.7 mg/dL (0.7-1.3) 01/01/17 06:00 Creat Clearance w eGFR > 60 (>60) 01/01/17 06:00 POC Glucometer 104 UNITS (()) 01/02/17 07:14 Random Glucose 122 mg/dL (74-106) H D 01/01/17 06:00 Calcium 8.3 mg/dL (8.5-10.1) L 01/01/17 06:00 Total Bilirubin 0.4 mg/dL (0.2-1.0) 01/01/17 06:00 AST 95 U/L (15-37) H 01/01/17 06:00 ALT 62 U/L (12-78) 01/01/17 06:00 Alkaline Phosphatase 113 U/L (45-117) D 01/01/17 06:00 Total Protein 7.2 g/dl (6.4-8.2) D 01/01/17 06:00 Albumin 4.1 g/dl (3.4-5.0) D 01/01/17 06:00 Urine Color Ltyellow 12/31/16 15:00 Urine Appearance Clear 12/31/16 15:00 Urine pH 7.0 (5.0-8.0) 12/31/16 15:00 Ur Specific [place] 1.009 (1.001-1.035) 12/31/16 15:00 Urine Protein Negative (NEGATIVE) 12/31/16 15:00 Urine Glucose (UA) Negative (NEGATIVE) 12/31/16 15:00 Urine Ketones Negative (NEGATIVE) 12/31/16 15:00 Urine Blood Negative (NEGATIVE) 12/31/16 15:00 Urine Nitrite Negative (NEGATIVE) 12/31/16 15:00 Urine Bilirubin Negative (NEGATIVE) 12/31/16 15:00 Urine Urobilinogen Negative E.U./dl (0.2-1.0) 12/31/16 15:00 Ur Leukocyte Esterase Negative (NEGATIVE) 12/31/16 15:00 RPR Titer Nonreactive (NONREACTIVE) 01/01/17 06:00 Assessment: 01/02/17 14:54 WITHDRAWAL SYMPTOM Plan: CONTINUE DETOX,HYPOKALEMIA HAS BEEN ON K REPLACEMENT
[2017-01-02] MEDS: chlordiazePOXIDE 5 MG CAPSULE PO SCH ×2 (18:12→22:08)
[2017-01-02] MEDS: traZODone HCL 100 MG TABLET (FP) PO SCH (22:08)
[2017-01-02] MEDS: diphenhydrAMINE HCL 50 MG CAPSULE PO PRN (22:10)
[2017-01-03] MEDS: chlordiazePOXIDE 5 MG CAPSULE PO SCH ×2 (05:53→11:38)
[2017-01-03 07:11] VITALS: BP 109/75; PULSE 91; TEMP 98.1
--- NOTE | 2017-01-03 09:35 | PN ---
S Progress Note (SOAP) Subjective: ALERT,NO COMPLAINT Objective: 01/03/17 09:34 Vital Signs Temperature 98.1 F 01/03/17 07:10 Pulse Rate 91 H 01/03/17 07:10 Respiratory Rate 20 01/03/17 07:10 Blood Pressure 109/75 01/03/17 07:10 O2 Sat by Pulse Oximetry (%) Assessment: 01/03/17 09:34 STABLE FOR DISCHARGE, Plan: DISCHARGE TODAY,FOLLOW UP WITH AFTER CARE PROGRAM ARRANGEMENT
[2017-01-03] MEDS: POTASSIUM CHLORIDE TABS 20 MEQ TABLET.ER (FP) PO SCH (09:42)
[2017-01-03] MEDS: PRENATAL VITAMINS W/ FOLIC ACID TABLET (FP) PO SCH (09:42)
--- NOTE | 2017-01-03 09:45 | DS ---
[facility] Detox Discharge Summary Admission Date: 12/31/16 Discharge Date: 01/03/17 - History Present History: Alcohol Dependence Additional Comments: PATIENT IS STABLE FOR DISCHARGE,PATIENT HAS TO LEAVE TO GO TO WORK,FOLLOW UP WITH PMD FOR HYPOKALEMIA ADVISE TO EAT MORE BANANA,CITRUS JUICE AND CONTINUE KDUR ND AFTER CARE PROGRAM ARRANGEMENT Pertinent Past History: SYNCOPE INSOMNIA SLEEP APNEA HISTORY OF GASTRIC BY PASS HYPOKALEMIA - Physical Exam Results Vital Signs: Vital Signs Temperature 98.1 F 01/03/17 07:10 Pulse Rate 91 H 01/03/17 07:10 Respiratory Rate 20 01/03/17 07:10 Blood Pressure 109/75 01/03/17 07:10 O2 Sat by Pulse Oximetry (%) Pertinent Admission Physical Exam Findings: WITHDRAWAL SYMPTOM - Treatment Hospital Course: Detox Protocol Followed, Detoxed Safely, Responded well, Discharged Condition Good Patient has Accepted a Rehab Referral to: [facility] - Medication Discharge Medications: Ambulatory Orders Hydroxyzine Pamoate [Vistaril -] 50 mg PO HS 09/28/16 Trazodone HCl [Desyrel -] 150 mg PO HS 09/28/16 Trazodone HCl 100 mg PO HS #30 tablet 01/01/17 Potassium Chloride [K-Dur -] 20 meq PO BID #10 tab 01/03/17 - Diagnosis (1) Alcohol dependence with uncomplicated withdrawal Current Visit: Yes Status: Acute (2) H/O gastric bypass Current Visit: Yes Status: Chronic (3) Nicotine dependence Current Visit: Yes Status: Acute Qualifiers: Nicotine product type: cigarettes Substance use status: uncomplicated Qualified Code(s): F17.210 - Nicotine dependence, cigarettes, uncomplicated (4) Insomnia Current Visit: Yes Status: Chronic (5) Syncope Current Visit: Yes Status: Acute (6) Sleep apnea Current Visit: Yes Status: Chronic (7) Hypokalemia Current Visit: No Status: Acute - AMA Did Patient Leave Against Medical Advice: No
== END 2017-01-03 10:09 | disposition home or self-care (01) | DRG 775 ==
LOC: YASAS 08:19 → Y6N 11:28
PROVIDERS: ADMIT Internal Medicine Addiction Medicine; ATTEND Internal Medicine Addiction Medicine
PROC: HZ2ZZZZ Detoxification Services for Substance Abuse Treatment (ICD-10-PCS; principal; 2016-12-31)
DX: F10.230 Alcohol dependence with withdrawal, uncomplicated (principal); F17.210 Nicotine dependence, cigarettes, uncomplicated; E87.6 Hypokalemia; G47.30 Sleep apnea, unspecified; G47.00 Insomnia, unspecified; Z98.84 Bariatric surgery status; Z86.79 Personal history of other diseases of the circulatory system
CPT/HCPCS: 36415; 80053; 81003; 85027; 86593; 93005; 93010

== ENCOUNTER 2017-04-26 10:18 | Inpatient (IN) | payer OTHER ==
[2017-04-26 11:38] VITALS: BMI 22.6
--- NOTE | 2017-04-26 13:10 | HP ---
CIWA Score - CIWA Score Nausea/Vomitin-Int. Nausea w/Dry Heave (NAUSEA/DIARRHEA) Muscle Tremors: 4-Moderate,w/Arms Extend Anxiety: 4-Mod. Anxious/Guarded Agitation: 3 Paroxysmal Sweats: 1-Minimal Palms Moist Orientation: 0-Oriented Tacttile Disturbances: 2-Mild Itch/Numbness/Burn Auditory Disturbances: 0-None Visual Disturbances: 0-None Headache: 2-Mild CIWA-Ar Total Score: 20 Admission ROS BHS - HPI Chief Complaint: DETOX TX FOR ALCOHOL DEPENDENCE-"I HAD A SEIZURE THE OTHER DAY SO I TOLD MYSELF TO COME TO DETOX" Allergies/Adverse Reactions: Allergies Allergy/AdvReac Type Severity Reaction Status Date / Time No Known Allergies Allergy Verified 04/26/17 12:05 History of Present Illness: 32 Y/O H/M WITH A HX OF ALCOHOL DEPENDENCE SEEKING DETOX TX Exam Limitations: No Limitations, Intoxication - Ebola screening Have you traveled outside of the country in the last 21 days: No Have you had contact with anyone from an Ebola affected area: No Have you been sick,other than usual withdrawal symptoms: No Do you have a fever: No - Review of Systems Constitutional: Chills, Loss of Appetite, Night Sweats, Changes in sleep EENT: reports: Dental Problems (TEETH IN POOR REPAIR) Respiratory: reports: No Symptoms reported Cardiac: reports: Lightheadedness GI: reports: Diarrhea, Nausea, Poor Fluid Intake : reports: No Symptoms Reported Musculoskeletal: reports: No Symptoms Reported Integumentary: reports: Other (TATTOOS UPPER EXTREMETIES/CHEST) Neuro: reports: Seizure, Tremors, Unsteady Gait, Dizziness Endocrine: reports: No Symptoms Reported Hematology: reports: Anemia Psychiatric: reports: Orientated x3, Anxious Other Systems: Reviewed and Negative Patient History - Patient Medical History Hx Anemia: Yes Hx Asthma: No Hx Chronic Obstructive Pulmonary Disease (COPD): No Hx Cancer: No Hx Cardiac Disorders: No Hx Congestive Heart Failure: No Hx Hypertension: No Hx Hypercholesterolemia: No Hx Pacemaker: No HX Cerebrovascular Accident: No Hx Seizures: Yes (2 1/2 MONTHS AGO) Hx Dementia: No Hx Diabetes: No Hx Gastrointestinal Disorders: No Hx Liver Disease: No Hx Genitourinary Disorders: No Hx Sexually Transmitted Disorders: No Hx Renal Disease (ESRD): No Hx Thyroid Disease: No Hx Human Immunodeficiency Virus (HIV): No (NEGATIVE HX last 12/04) Hx Hepatitis C: No Hx Depression: No Hx Suicide Attempt: No Hx Bipolar Disorder: No Hx Schizophrenia: No Other Medical History: HX HYPOKALEMIA - Patient Surgical History Past Surgical History: Yes Hx Neurologic Surgery: No Hx Cataract Extraction: No Hx Cardiac Surgery: No Hx Lung Surgery: No Hx Breast Surgery: No Hx Breast Biopsy: No Hx Abdominal Surgery: Yes (gastric bypass in 2011 TUMMY TUCK IN 2012) Hx Appendectomy: No Hx Cholecystectomy: No Hx Genitourinary Surgery: No Hx Orthopedic Surgery: No Anesthesia Reaction: No - PPD History Previous Implant?: Yes Documented Results: Negative w/proof Implanted On Prior R Admission?: Yes Date: 09/30/16 Results: 0 mm PPD to be Administered?: No - Reproductive History Patient is a Female of Child Bearing Age (11 -55 yrs old): No (MALE) Patient : (N/A) - Smoking Cessation Smoking history: Current every day smoker Have you smoked in the past 12 months: Yes Aproximately how many cigarettes per day: 10 Hx Chewing Tobacco Use: No Initiated information on smoking cessation: Yes 'Breaking Loose' booklet given: 04/26/17 - Substance & Tx. History Hx Alcohol Use: Yes (VODKA) Hx Substance Use: No Substance Use Type: Alcohol Hx Substance Use Treatment: Yes (DON'T RECOLLECT LAST TX BUT HERE FEW MONTHS AGO ) - Substances Abused Alcohol Route: Oral Frequency: Daily Amount used: limearitta(4 cans) Age of first use: 29 Date of Last Use: 04/26/17 Family Disease History - Family Disease History Family Disease History: Other: Father (HTN) Admission Physical Exam [facility] - Vital Signs Vital Signs: Vital Signs - 24 hr 04/26/17 11:26 Temperature 97 F L Pulse Rate 108 H Respiratory 20 Rate Blood Pressure 133/87 - Physical General Appearance: Yes: Alcohol on Breath, Intoxicated, Thin, Irritable, Anxious HEENTM: Yes: EOMI, Normocephalic, TONY, Pharynx Normal Respiratory: Yes: Chest Non-Tender, Lungs Clear, Normal Breath Sounds, No Respiratory Distress Neck: Yes: No masses,lesions,Nodules, Supple, Trachea in good position Breast: Yes: Breast Exam Deferred Cardiology: Yes: Regular Rhythm, S1, S2, Tachycardia Abdominal: Yes: Normal Bowel Sounds, Non Tender, Flat, Soft Genitourinary: Yes: Other (N/C) Back: Yes: Within Normal Limits Musculoskeletal: Yes: full range of Motion, Gait Steady Extremities: Yes: Normal Range of Motion, Non-Tender Neurological: Yes: surgical garment fitter II-XII NML intact, Fully Oriented, Alert Integumentary: Yes: Dry, Warm, Other (TATTOOS ON UPPER EXTREMITIES AND CHEST) Lymphatic: Yes: Within Normal Limits - Diagnostic (1) Alcohol dependence with uncomplicated withdrawal Current Visit: Yes Status: Acute (2) Nicotine dependence Current Visit: Yes Status: Acute Qualifiers: Nicotine product type: cigarettes Substance use status: in withdrawal Qualified Code(s): F17.213 - Nicotine dependence, cigarettes, with withdrawal (3) H/O gastric bypass Current Visit: Yes Status: Chronic (4) Alcohol intoxication Current Visit: Yes Status: Acute Qualifiers: Complication of substance-induced condition: uncomplicated Qualified Code(s): F10.920 - Alcohol use, unspecified with intoxication, uncomplicated Cleared for Admission [facility] - Detox or Rehab [facility] Level of Care: Medically Managed Detox Regimen/Protocol: Librium [facility] Breath Alcohol Content Breath Alcohol Content: 0.289 Urine Drug Screen - Results Drug Screen Negative: Yes
[2017-04-26] MEDS ORDERED: LOPERAMIDE HCL 2 MG CAPSULE PO PRN (13:26)
[2017-04-26] MEDS ORDERED: guaiFENesin/D-METHORPHAN HB 10 ML UNIT-DOSE CUPS PO PRN (13:26)
[2017-04-26] MEDS ORDERED: MAG HYDROX/AL HYDROX/SIMETH 30 ML UNIT-DOSE CUP PO PRN (13:26)
[2017-04-26] MEDS ORDERED: MAGNESIUM HYDROX 2400MG/30ML ORAL SUSPENSION 30 ML CUP PO PRN (13:26)
[2017-04-26] MEDS ORDERED: P-EPHED 60MG/TRIPROLIDI 2.5MG TABLET PO PRN (13:26)
[2017-04-26] MEDS ORDERED: ACETAMINOPHEN 325 MG TABLET (FP) PO PRN (13:26)
[2017-04-26] MEDS ORDERED: MENTHOL/PHENOL 1 EACH UD MM PRN (13:26)
[2017-04-26] MEDS ORDERED: hydrOXYzine PAMOATE 25 MG CAPSULE (FP) PO PRN (13:26)
[2017-04-26] MEDS ORDERED: MAGNESIUM CITRATE 300 ML BOTTLE PO PRN (13:26)
[2017-04-26] MEDS ORDERED: IBUPROFEN 400 MG TABLET (FP) PO PRN (13:26)
[2017-04-26] MEDS ORDERED: chlordiazePOXIDE HCL 25 MG CAPSULE PO PRN (13:26)
[2017-04-26] MEDS ORDERED: chlordiazePOXIDE HCL 25 MG CAPSULE PO ONE (14:22)
[2017-04-26] MEDS ORDERED: chlordiazePOXIDE HCL 25 MG CAPSULE PO SCH (17:00)
[2017-04-26] MEDS: chlordiazePOXIDE HCL 25 MG CAPSULE PO SCH ×2 (18:16→22:32)
[2017-04-26] MEDS: THIAMINE HCL 100 MG TABLET (FP) PO SCH (22:32)
[2017-04-26] MEDS: diphenhydrAMINE HCL 50 MG CAPSULE PO PRN (22:33)
[2017-04-26 22:43] LABS: URINE APPEARANCE CLEAR; URINE BILIRUBIN NEGATIVE (NEGATIVE); URINE BLOOD NEGATIVE (NEGATIVE); URINE COLOR STRAW; URINE GLUCOSE (UA) NEGATIVE (NEGATIVE); URINE KETONE NEGATIVE (NEGATIVE); URINE LEUK ESTERASE NEGATIVE (NEGATIVE); URINE NITRITE NEGATIVE (NEGATIVE); URINE PROTEIN NEGATIVE (NEGATIVE); URINE UROBILINOGEN NEGATIVE mg/dL (0.2-1.0)
[2017-04-27] MEDS: chlordiazePOXIDE HCL 25 MG CAPSULE PO SCH ×4 (06:04→22:05)
--- NOTE | 2017-04-27 09:49 | PN ---
S CIWA - CIWA Score Nausea/Vomitin-Mild Nausea/No Vomiting Muscle Tremors: 4-Moderate,w/Arms Extend Anxiety: 4-Mod. Anxious/Guarded Agitation: 4-Moderately Restless Paroxysmal Sweats: 3 Orientation: 0-Oriented Tacttile Disturbances: 0-None Auditory Disturbances: 0-None Visual Disturbances: 0-None Headache: 1-Very Mild CIWA-Ar Total Score: 17 BHS Progress Note (SOAP) Subjective: sweats shakes jumpy muscle cramping interrupted sleep agitation Objective: 04/27/17 09:48 Vital Signs Temperature 97.9 F 04/27/17 06:00 Pulse Rate 76 04/27/17 06:00 Respiratory Rate 18 04/27/17 06:00 Blood Pressure 129/89 04/27/17 06:00 O2 Sat by Pulse Oximetry (%) Laboratory Tests 04/26/17 22:20 Urine Color Straw Urine Appearance Clear Urine pH 5.0 D Urine Protein Negative Urine Glucose (UA) Negative Urine Ketones Negative Urine Blood Negative Urine Nitrite Negative Urine Bilirubin Negative Urine Urobilinogen Negative Ur Leukocyte Esterase Negative labs pending awake/alert ambulating no acute distress Assessment: 04/27/17 09:49 withdrawal sx Plan: continue detox increase fluids labs pending flexiril prn clonidine 0.1mg bid with parameters
[2017-04-27] MEDS: PRENATAL VITAMINS W/ FOLIC ACID TABLET (FP) PO SCH (10:11)
[2017-04-27] MEDS: CYCLOBENZAPRINE HCL 10 MG TABLET (FP) PO PRN ×2 (10:12→22:05)
[2017-04-27] MEDS: cloNIDine HCL 0.1 MG TABLET PO SCH ×2 (10:12→22:05)
[2017-04-27 12:29] LABS: ALBUMIN 4.3 g/dl (3.4-5.0); ALK PHOS 73 U/L (45-117); ANION GAP 8 (8-16); BILIRUBIN,TOTAL 0.4 mg/dL (0.2-1.0); CALCIUM 9.2 mg/dL (8.5-10.1); CO2 31 mmol/L (21-32); CREATININE 0.8 mg/dL (0.7-1.3); GLUCOSE,RANDOM 98 mg/dL (74-106); SGOT/AST 35 U/L (15-37); SGPT/ALT 44 U/L (12-78); TOT PROT 7.3 g/dl (6.4-8.2)
[2017-04-27 12:31] LABS: MCH 34.2 pg (25.7-33.7); MCHC 33.5 g/dl (32.0-35.9); MEAN CELL VOLUME 101.9 fl (80-96); MEAN PLT VOLUME 8.3 fl (7.5-11.1); PLATELET COUNT 262 K/MM3 (134-434); RDW 15.9 % (11.9-15.9); WHITE BLOOD COUNT 7.5 K/mm3 (4.0-10.0)
[2017-04-27] MEDS: THIAMINE HCL 100 MG TABLET (FP) PO SCH (22:05)
[2017-04-27] MEDS: diphenhydrAMINE HCL 50 MG CAPSULE PO PRN (22:05)
[2017-04-28] MEDS: chlordiazePOXIDE HCL 25 MG CAPSULE PO SCH ×2 (05:23→10:23)
[2017-04-28] MEDS ORDERED: diphenhydrAMINE HCL 25 MG CAPSULE (FP) PO ONE (09:49)
--- NOTE | 2017-04-28 09:52 | PN ---
[facility] CIWA - CIWA Score Nausea/Vomitin-No Nausea/No Vomiting Muscle Tremors: 4-Moderate,w/Arms Extend Anxiety: 3 Agitation: 4-Moderately Restless Paroxysmal Sweats: 3 Orientation: 0-Oriented Tacttile Disturbances: 0-None Auditory Disturbances: 0-None Visual Disturbances: 0-None Headache: 1-Very Mild CIWA-Ar Total Score: 15 BHS Progress Note (SOAP) Subjective: interrupted sleep itchy skin sweats body aches tired Objective: 04/28/17 09:50 Vital Signs Temperature 97.3 F L 04/28/17 06:24 Pulse Rate 84 04/28/17 06:24 Respiratory Rate 18 04/28/17 06:24 Blood Pressure 106/70 04/28/17 06:24 O2 Sat by Pulse Oximetry (%) Laboratory Tests 04/26/17 04/27/17 04/27/17 22:20 06:15 06:15 WBC 7.5 D RBC 4.45 Hgb 15.2 Hct 45.3 MCV 101.9 H MCH 34.2 H MCHC 33.5 RDW 15.9 Plt Count 262 D MPV 8.3 D Sodium 147 H Potassium 4.1 D Chloride 108 H Carbon Dioxide 31 Anion Gap 8 BUN 3 L D Creatinine 0.8 Creat Clearance w eGFR > 60 Random Glucose 98 Calcium 9.2 Total Bilirubin 0.4 AST 35 D ALT 44 D Alkaline Phosphatase 73 D Total Protein 7.3 Albumin 4.3 Urine Color Straw Urine Appearance Clear Urine pH 5.0 D Ur Specific [place] <= 1.005 Urine Protein Negative Urine Glucose (UA) Negative Urine Ketones Negative Urine Blood Negative Urine Nitrite Negative Urine Bilirubin Negative Urine Urobilinogen Negative Ur Leukocyte Esterase Negative awake/alert ambulating no acute distress Assessment: 04/28/17 09:51 withdrawal sx Plan: continue detox increase fluids benadryl 25mg x one hytone lotion
[2017-04-28] MEDS: CYCLOBENZAPRINE HCL 10 MG TABLET (FP) PO PRN ×2 (10:23→22:21)
[2017-04-28] MEDS: cloNIDine HCL 0.1 MG TABLET PO SCH ×2 (10:23→22:21)
[2017-04-28] MEDS: PRENATAL VITAMINS W/ FOLIC ACID TABLET (FP) PO SCH (10:23)
[2017-04-28] MEDS: HYDROCORTISONE 2.5% LOTION - 1 BOTTLE TP SCH ×4 (11:10→22:22)
--- NOTE | 2017-04-28 14:52 | EKG ---
Test Reason : Blood Pressure : / mmHG Vent. Rate : 090 BPM Atrial Rate : 090 BPM P-R Int : 126 ms QRS Dur : 098 ms QT Int : 358 ms P-R-T Axes : 064 063 067 degrees QTc Int : 437 ms NORMAL SINUS RHYTHM EARLY REPOLARIZATION NORMAL ECG WHEN COMPARED WITH ECG OF 31-DEC-2016 11:44, NO SIGNIFICANT CHANGE WAS FOUND Confirmed by VIVIANA MURPHY MD ([id number]) on 04/28/2017 2:51:30 PM Referred By: Confirmed By:VIVIANA MURPHY MD
[2017-04-28] MEDS: chlordiazePOXIDE 5 MG CAPSULE PO SCH ×2 (20:10→22:21)
[2017-04-28] MEDS: THIAMINE HCL 100 MG TABLET (FP) PO SCH (22:21)
[2017-04-29] MEDS: chlordiazePOXIDE 5 MG CAPSULE PO SCH ×2 (05:23→11:20)
[2017-04-29] MEDS ORDERED: cloNIDine HCL 0.1 MG TABLET PO ONE (08:58)
--- NOTE | 2017-04-29 09:16 | PN ---
S Progress Note Note: BP 116/77, HR 145 pt denies of any chest pain, no SOB EKG ordered, and clonidine 0.2mg x one ordered will continue to monitor
--- NOTE | 2017-04-29 09:56 | PN ---
BHS Progress Note (SOAP) Subjective: dizzy sweats shakes interrupted sleep agitation Objective: 04/29/17 10:18 Vital Signs Temperature 97.5 F L 04/29/17 06:18 Pulse Rate 110 04/29/17 06:18 Respiratory Rate 18 04/29/17 06:18 Blood Pressure 146/88 04/29/17 06:18 O2 Sat by Pulse Oximetry (%) 100% Laboratory Tests 04/26/17 04/27/17 04/27/17 22:20 06:15 06:15 WBC 7.5 D RBC 4.45 Hgb 15.2 Hct 45.3 MCV 101.9 H MCH 34.2 H MCHC 33.5 RDW 15.9 Plt Count 262 D MPV 8.3 D Sodium 147 H Potassium 4.1 D Chloride 108 H Carbon Dioxide 31 Anion Gap 8 BUN 3 L D Creatinine 0.8 Creat Clearance w eGFR > 60 Random Glucose 98 Calcium 9.2 Total Bilirubin 0.4 AST 35 D ALT 44 D Alkaline Phosphatase 73 D Total Protein 7.3 Albumin 4.3 Urine Color Straw Urine Appearance Clear Urine pH 5.0 D Ur Specific [place] <= 1.005 Urine Protein Negative Urine Glucose (UA) Negative Urine Ketones Negative Urine Blood Negative Urine Nitrite Negative Urine Bilirubin Negative Urine Urobilinogen Negative Ur Leukocyte Esterase Negative RPR Titer 04/27/17 06:15 WBC RBC Hgb Hct MCV MCH MCHC RDW Plt Count MPV Sodium Potassium Chloride Carbon Dioxide Anion Gap BUN Creatinine Creat Clearance w eGFR Random Glucose Calcium Total Bilirubin AST ALT Alkaline Phosphatase Total Protein Albumin Urine Color Urine Appearance Urine pH Ur Specific [place] Urine Protein Urine Glucose (UA) Urine Ketones Urine Blood Urine Nitrite Urine Bilirubin Urine Urobilinogen Ur Leukocyte Esterase RPR Titer Nonreactive awake/alert ambulating no acute distress Assessment: 04/29/17 10:20 withdrawal sx Plan: continue detox increase fluids
[2017-04-29] MEDS: HYDROCORTISONE 2.5% LOTION - 1 BOTTLE TP SCH ×4 (11:20→22:14)
[2017-04-29] MEDS: PRENATAL VITAMINS W/ FOLIC ACID TABLET (FP) PO SCH (11:20)
[2017-04-29] MEDS: chlordiazePOXIDE HCL 10 MG CAPSULE PO SCH ×2 (16:50→22:14)
[2017-04-29] MEDS ORDERED: cloNIDine HCL 0.1 MG TABLET PO SCH (22:00)
[2017-04-29] MEDS: THIAMINE HCL 100 MG TABLET (FP) PO SCH (22:14)
[2017-04-29] MEDS: CYCLOBENZAPRINE HCL 10 MG TABLET (FP) PO PRN (22:14)
[2017-04-29] MEDS: diphenhydrAMINE HCL 50 MG CAPSULE PO PRN (22:16)
[2017-04-30 06:29] VITALS: BP 113/72; PULSE 76; TEMP 98.3
[2017-04-30] MEDS: chlordiazePOXIDE HCL 10 MG CAPSULE PO SCH (07:18)
--- NOTE | 2017-04-30 08:33 | DS ---
[facility] Detox Discharge Summary Admission Date: 04/26/17 Discharge Date: 04/30/17 - History Present History: Alcohol Dependence - Physical Exam Results Vital Signs: Vital Signs Temperature 98.3 F 04/30/17 06:28 Pulse Rate 76 04/30/17 06:28 Respiratory Rate 18 04/30/17 06:28 Blood Pressure 113/72 04/30/17 06:28 O2 Sat by Pulse Oximetry (%) - Treatment Hospital Course: Detox Protocol Followed, Detoxed Safely, Responded well, Discharged Condition Good, Rehab Referral Accepted - Medication Discharge Medications: Ambulatory Orders NK [No Known Home Medication] 04/26/17 - Diagnosis (1) Alcohol dependence with uncomplicated withdrawal Status: Chronic (2) Alcohol intoxication Status: Acute Qualifiers: Complication of substance-induced condition: uncomplicated Qualified Code(s): F10.920 - Alcohol use, unspecified with intoxication, uncomplicated (3) Hypokalemia Status: Acute (4) Nicotine dependence Status: Chronic Qualifiers: Nicotine product type: cigarettes Substance use status: uncomplicated Qualified Code(s): F17.210 - Nicotine dependence, cigarettes, uncomplicated (5) Substance-induced sleep disorder Status: Acute (6) Syncope Status: Acute (7) H/O gastric bypass Status: Chronic (8) Insomnia Status: Chronic (9) Sleep apnea Status: Chronic - AMA Did Patient Leave Against Medical Advice: No
--- NOTE | 2017-05-06 15:02 | EKG ---
Test Reason : Blood Pressure : / mmHG Vent. Rate : 119 BPM Atrial Rate : 119 BPM P-R Int : 126 ms QRS Dur : 096 ms QT Int : 328 ms P-R-T Axes : 071 067 065 degrees QTc Int : 461 ms SINUS TACHYCARDIA OTHERWISE NORMAL ECG WHEN COMPARED WITH ECG OF 26-APR-2017 14:36, T WAVE AMPLITUDE HAS DECREASED IN LATERAL LEADS Confirmed by HUI APONTE MD ([id number]) on 05/06/2017 3:02:08 PM Referred By: Confirmed By:HUI APONTE MD
== END 2017-04-30 06:55 | disposition home or self-care (01) | DRG 775 ==
LOC: YASAS 10:18 → Y6N 13:56
PROVIDERS: ADMIT Internal Medicine; ATTEND Internal Medicine
PROC: HZ2ZZZZ Detoxification Services for Substance Abuse Treatment (ICD-10-PCS; principal; 2017-04-26)
DX: F10.230 Alcohol dependence with withdrawal, uncomplicated (principal); F17.210 Nicotine dependence, cigarettes, uncomplicated; F19.282 Other psychoactive substance dependence with psychoactive substance-induced sleep disorder; R00.0 Tachycardia, unspecified; E87.6 Hypokalemia; G47.00 Insomnia, unspecified; G47.30 Sleep apnea, unspecified; Z98.84 Bariatric surgery status; Z86.79 Personal history of other diseases of the circulatory system; Z86.69 Personal history of other diseases of the nervous system and sense organs; Z86.2 Personal history of diseases of the blood and blood-forming organs and certain disorders involving the immune mechanism
CPT/HCPCS: 36415; 80053; 81003; 85027; 86593; 93005; 93010